=== PATIENT | male | born 1955 | race Caucasian/White ===

== ENCOUNTER 2019-06-11 06:09 | Day surgery (SDC) | payer BC ==
--- NOTE | 2019-05-07 10:00 | HP ---
DATE OF ADMISSION: 06/11/2019 REASON FOR ADMISSION: Left inguinal hernia. BRIEF HISTORY: This is a 63-year-old gentleman who is minimally symptomatic from a left inguinal hernia. He noted a hernia in his left groin approximately 3-4 weeks ago. The patient states the hernia truly does not cause him much discomfort. Occasionally notices it is there. He has had no change in bowel habits. No nausea, no vomiting. The patient states the hernia has not gotten any larger since its discovery. PAST MEDICAL HISTORY: Significant for atrial fibrillation status post an ablation procedure. Patient has had bilateral hydroceles and is status post hydrocelectomy on the right but patient has recurrence. ALLERGIES: None. MEDICATIONS: None. 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 He does not smoke. Does not drink and no history of drug use. PHYSICAL EXAMINATION: Patient examined in erect and supine position. He is placed through Valsalva maneuvers. He has an obvious left inguinal hernia. The hernia is reducible in the supine position. The left scrotum is enlarged secondary to a hydrocele. The testicle is not evaluated due to a hydrocele as well. On the right side, he has no obvious right groin hernia; however, he is status post repair of a right inguinal hernia as a child. There is a scar in the right groin. The right hydrocele is large, and the right testicle is not evaluated as well. According to the patient, prior to his hydrocele surgery and evaluation, he underwent ultrasound of both groins and no obvious findings other than the hydrocele. IMPRESSION/PLAN: Left inguinal hernia. This is a 63-year-old gentleman who has a moderate-sized left inguinal hernia. We have discussed the various surgical approaches such as laparoscopic versus robotic versus open. Given the patient's unilateral finding and the fact that he would prefer to have surgery performed under local anesthesia and IV sedation, he is truly not a good candidate for the laparoscopic or robotic procedures and, therefore, will undergo an open left inguinal hernia repair with mesh (again, we have discussed the various controversies around mesh and the need for using mesh in this scenario). The indications, alternatives, and complications to the procedure also have been discussed at length, and we will plan to obtain written consent the day of surgery. Patient will be scheduled for an open left inguinal hernia repair with mesh. Procedure will be done under IV sedation and local anesthesia. Prior to intervention, he will also undergo a TAP block under ultrasound. TSERING DEUTSCH M.D. [id number]
[2019-06-02 11:54] VITALS: BMI 24.3
[2019-06-11] MEDS ORDERED: TAMSULOSIN HCL 0.4 MG CAP ONE (06:31)
[2019-06-11] MEDS ORDERED: MIDAZOLAM HCL 2 MG/2 ML SINGLE DOSE VIAL ONE ×2 (07:21→07:29)
[2019-06-11] MEDS ORDERED: ROPIVACAINE HCL 0.5% 30ML VIAL ONE (07:21)
[2019-06-11] MEDS ORDERED: KETOROLAC TROMETHAMINE 30 MG/1 ML VIAL ONE (07:25)
[2019-06-11] MEDS ORDERED: LIDOCAINE HCL/PF 2% SDV 5ML VIAL ONE (07:25)
[2019-06-11] MEDS ORDERED: SODIUM CHLORIDE 0.9% P/F 10 ML VIAL IJ ONE ×2 (07:25→08:40)
[2019-06-11] MEDS ORDERED: ONDANSETRON 4 MG/2 ML VIAL ONE (07:25)
[2019-06-11] MEDS ORDERED: DEXAMETHASONE SOD PHOSPHATE 4 MG/1 ML VIAL ONE (07:25)
[2019-06-11] MEDS ORDERED: SUCCINYLCHOLINE CHLORIDE 200 MG/10 ML SYRINGE ONE (07:25)
[2019-06-11] MEDS ORDERED: ceFAZolin SODIUM 1 GM VIAL ONE (07:25)
[2019-06-11] MEDS ORDERED: PROPOFOL 20 ML ONE ×3 (07:25→08:44)
[2019-06-11] MEDS ORDERED: BUPIVACAINE LIPOSOME/PF (EXPAREL) 266 MG/20 ML VIAL ONE (07:35)
[2019-06-11 11:47] VITALS: TEMP 98
[2019-06-11 12:49] VITALS: BP 122/78; PULSE 72
--- NOTE | 2019-06-11 14:19 | OP ---
DATE OF OPERATION: DATE OF DICTATION: 06/11/2019 PREOPERATIVE DIAGNOSIS: Left inguinal hernia. POSTOPERATIVE DIAGNOSIS: Left indirect inguinal hernia, mild attenuation of direct inguinal space, atrial fibrillation. PROCEDURE: Open repair of left inguinal hernia with mesh, 8-cm intermittent wound closure. SURGEON: Benjie Deutsch MD WILL CALL ORDER CLERK: Gerry Weiss MD ANESTHESIA: Armand Muñoz MD (LMA) ESTIMATED BLOOD LOSS: Minimal. SPECIMEN: None. INDICATIONS FOR PROCEDURE: This is a 63-year-old gentleman symptomatic from a left inguinal hernia who wished to have this repaired. DESCRIPTION OF PROCEDURE: Patient identified and appropriately positioned on operating room table. After placement of general anesthesia, the abdomen prepped and draped in the usual sterile fashion with ChloraPrep. An 8-cm left inguinal incision was made, deepened to subcutaneous tissue. Opal was divided sharply. The fascia of the external oblique divided in the direction of its fibers through the external ring. The ilioinguinal nerve identified and retracted medially. The cord isolated at the pubic tubercle. The cremasteric was divided sharply off the cord, and the patient had a large, indirect inguinal hernia sac that appeared to contain bowel. The sac was not opened since palpation of the sac suggested bowel and most likely a slider. Given this finding, the sac itself was reduced back in the preperitoneal space, the inguinal floor opened. The circumflex vessels off the undersurface of the inguinal floor and a Marlex mesh plug placed into the preperitoneal inguinal floor above the circumflex vessels. The plug itself was then sutured with interrupted 0 Prolene sutures circumferentially. At this point, the cord structures were wrapped as well with the Marlex mesh plug. The inguinal floor then subsequently reconstructed with a running 2-0 Prolene suture. This was done in 2 layers. Due to the attenuation of the direct inguinal floor, a 15 x 15 piece of ProGrip was cut to the appropriate size, gonzalez holed, and placed overlying the inguinal floor for reinforcement, and the cord structures were wrapped with the ProGrip. The inguinal nerve returned to its anatomic position along with the spermatic cord. The fascia of the external oblique reapproximated with a running 3-0 Vicryl suture. Opal was reapproximated with interrupted inverted 3-0 Vicryl suture and the skin closed with a 4-0 subcuticular Biosyn. Length of incision approximately 8 cm. At the conclusion of this case, sponge counts were correct. ATTESTATION: Brief operative note handwritten on the preprinted form. [facility] queried prior to giving any narcotics. BENJIE DEUTSCH M.D. [id number] MTDD
[2019-06-11] MEDS ORDERED: ONDANSETRON 4 MG/2 ML VIAL IVPUSH PRN (14:57)
[2019-06-11] MEDS ORDERED: oxyCODONE HCL 5 MG TABLET PO PRN ×2 (14:57)
[2019-06-11] MEDS ORDERED: LACTATED RINGERS SOLUTION 1,000 ML IV SCH (15:00)
== END 2019-06-11 12:45 | disposition home or self-care (01) ==
LOC: FASU 06:09
PROVIDERS: ATTEND Surgery
PROC: 0YU60JZ Supplement Left Inguinal Region with Synthetic Substitute, Open Approach (ICD-10-PCS; principal; 2019-06-11 08:27)
DX: K40.90 Unilateral inguinal hernia, without obstruction or gangrene, not specified as recurrent (principal); I48.91 Unspecified atrial fibrillation
CPT/HCPCS: 94760